=== PATIENT | female | born 1980 | race Two or more races ===

== ENCOUNTER 2017-10-22 15:54 | Emergency (ER) | payer MEDICAID ==
[~2017-10-22] VITALS: Ht 162.6 cm; Wt 54.4 kg
[2017-10-22 16:30] VITALS: BP 133/91
== END 2017-10-22 17:36 | disposition left against medical advice (07) ==
LOC: EDBD 15:54 → ER 16:00
DX: E16.2 Hypoglycemia, unspecified (principal); Z53.21 Procedure and treatment not carried out due to patient leaving prior to being seen by health care provider